=== PATIENT | male | born 1945 | race Caucasian/White ===

== ENCOUNTER 2016-08-06 01:48 | Emergency (ER) | payer MEDICARE, OTHER ==
[~2016-08-06] VITALS: Ht 167.6 cm; Wt 90.9 kg
[~2016-08-06 01:48] MED LIST: LISI-571 PO; LISI20TA PO
--- NOTE | 2016-08-06 01:51 | ED.REPORT ---
HPI-Abd Pain M 40 and Over Date of Service Aug 06, 2016 ED Provider: Ab Chang MD Pt is a 71 y.o. male with a hx of HTN and nephrolithiasis who presents to the ED accompanied by his c/o sudden abdominal pain onset 2129. Associated nausea, vomiting, and constipation. Pt states that he has not had a BM in 3 days. Nursing Notes Stated Complaint: ABDOMINAL PAIN, NAUSEA Nursing Notes Reviewed: Yes Allergies: Coded Allergies: Penicillins (Verified Allergy, Unknown, 08/06/16) Sulfa (Sulfonamide Antibiotics) (Verified Allergy, Unknown, 08/06/16) influenza virus vaccine, specific (Verified Adverse Reaction, Severe, Flu symptoms within 24hr of vaccine/each time xseveral yrs, 08/06/16) Scheduled Lisinopril (Lisinopril) 5 Mg Tablet 5 MG PO DAILY Lisinopril-Expunged Drug, Do Not Renew! (Lisinopril-Expunged Drug, Do Not Renew! ) 20 Mg Tablet 2.5 MG PO DAILY General Time Seen by MD: 01:50 Chief Complaint Abdominal pain Hx Obtained From: Patient Arrived By: Walk-in Sudden in Onset?: Yes Onset Occurred: 1 - 4 hours ago Symptom Duration: Since onset Location: : Diffuse Quality: Painful Severity: Current: Severe Recent Healthcare: No recent doctor visit, No recent hospitalization Past Medical History Past Medical History Hx of kidney stones Reports: Hypertension Past Surgical History Repair and re-attachment of fingers Reports: Tonsillectomy Family History Colon cancer Smoking History Never Smoker Social History Alcohol Use: Denies alcohol use Ambulatory Status Independent Review of Systems GI: Reports: Abdominal pain, Constipation, Nausea, Vomiting Complete sys rev & neg: except as marked. Physical Exam Initial Vital Signs Vital Signs (First) Date Time Temp Pulse Resp B/P Pulse Ox O2 Delivery O2 Flow Rate FiO2 08/06/16 01:56 36.6 65 20 156/96 99 Room Air 08/06/16 03:57 2 Initial VS: Reviewed, Vital signs abnormal Head / Eyes: Atraumatic, Normocephalic Extremities: Vascular intact, Neuro intact Skin: Warm, Dry, No cyanosis Neurologic: Alert, Oriented, Nonfocal Psychiatric: Mood/affect normal, Behavior normal, Normal thought content General/Constitutional: Awake, Alert, Well appearing, Well developed, Well hydrated Appearance / Presentation: Positive: In pain, Pale, Uncomfortable Respiratory / Chest: Atraumatic, Breath sounds NL, Breath sounds = bilat, No respiratory distress, No rales, No rhonchi, No wheezing, No retractions, No stridor Cardiovascular: Heart rate NL, Regular rhythm, Heart sounds NL, No gallop, No murmurs, No rubs, Peripheral circulation NL Bilateral femoral pulses present Abdomen: Atraumatic, Soft Tenderness/Guarding/Rebound: Positive: Tender diffuse Back: Atraumatic Interpretation & Diagnostics Lab Results Interpretation Result Diagram: 08/06/16 0154 08/06/16 0154 Test 08/06/16 01:54 08/06/16 03:30 White Blood Count 11.5th/mm3 (3.8-10.1) Red Blood Count 5.05mil/mm3 (4.40-5.80) Hemoglobin 15.9g/dL (13.8-17.2) Hematocrit 44.6% (41.0-50.0) Mean Corpuscular Volume 88.3fL (81-100) Mean Corpuscular Hemoglobin 31.5pg (27.0-35.0) Mean Corpuscular Hemoglobin Concent 35.7% (32.0-37.0) Red Cell Distribution Width 13.1% (12.3-15.4) Platelet Count 224bil/L (150-400) Neutrophils (%) (Auto) 79.0% (40-74) Lymphocytes (%) (Auto) 15.1% (14-46) Monocytes (%) (Auto) 5.1% (4-12) Eosinophils (%) (Auto) 0.3% (0-5) Basophils (%) (Auto) 0.3% (0-3) Prothrombin Time 10.0sec (8.1-12.5) Prothromb Time International Ratio 0.94ratio Sodium Level 138mEq/L (134-144) Potassium Level 3.1mEq/L (3.5-5.2) Chloride Level 97mEq/L (97-108) Carbon Dioxide Level 24mmol/L (18-29) Blood Urea Nitrogen 20mg/dL (8-27) Creatinine 0.93mg/dL (0.76-1.27) Estimat Glomerular Filtration Rate 85mL/min (>59) Glucose Level 185mg/dL (60-99) Lactic Acid Level 3.4mmol/L (0.4-2.0) Calcium Level 9.4mg/dL (8.5-10.1) Magnesium Level 2.1mg/dL (1.6-2.6) Total Bilirubin 0.5mg/dL (0.0-1.2) Aspartate Amino Transf (AST/SGOT) 22U/L (0-50) Alanine Aminotransferase (ALT/SGPT) 26U/L (0-44) Alkaline Phosphatase 67U/L (25-160) Total Protein 7.5g/dL (6.4-8.4) Albumin 4.3g/dL (3.4-5.0) Lipase 13U/L (13-60) Urine Color Straw (YELLOW) Urine Appearance Hazy (CLEAR,HAZY) Urine pH 8.0 (5.0-8.0) Urine Specific [place] 1.010 (1.003-1.035) Urine Protein Negativemg/dL (NEG,TRACE) Urine Glucose (UA) Negativemg/dL (NEGATIVE) Urine Ketones 15mg/dL (NEGATIVE) Urine Occult Blood Negative (NEGATIVE) Urine Nitrite Negative (NEGATIVE) Urine Bilirubin Negative (NEGATIVE) Urine Urobilinogen Normalmg/dL (NORMAL) Urine Leukocyte Esterase Negative (NEGATIVE) Urine RBC 0-2/hpf (0-2) Urine WBC 0-5/hpf (0-5) Urine Epithelial Cells Occasional/hpf (NONE-MOD) Urine Crystals Amorphous phosphates Urine Bacteria None/hpf (NONE-FEW) Urine Hyaline Casts None/lpf (NONE) Urine Granular Casts None seen (NONE SEEN) Urine Waxy Casts None seen (NONE SEEN) Urine Red Blood Cell Casts None seen (NONE SEEN) Urine White Blood Cell Casts None seen (NONE SEEN) Urine Mucus None seen (None Seen) Urine Trichomonas None seen (NONE SEEN) Urine Yeast None (NONE SEEN) Urine Culture Reflexed Not indicated Lab Results Interpretation: Mild white blood count elevation, hypokalemia, elevated lactic acid 3.4, hyperglycemia. ECG Interpretation Time: 01:53 Normal ECG Interpretation: Normal rate (73), Normal sinus rhythm Urinalysis Interpretation Positive ketones CT Chest Interpretation CONCLUSION: Normal CT angiogram of the chest. Radiologist: Good Jiang M.D. CT Abd / Pelvis Interpretation CONCLUSION: No acute vascular process. Dilation of the common bile duct and intrahepatic biliary tract with a questionable low density filling defect in the distal common bile duct. This may represent artifact, sludge, soft tissue lesion or low density stone. Correlate with clinical setting and labratory data to determine if further evaluation with ultrasound, MRCP or ERCP is indicated. Multiple renal cysts. Cannot completely exclude hydronephrosis in either kidney. If there are signs or symptoms of urinary tract pathology a followup AP supine radiograph of the abdomen might be considered, as urinary tract should be opacified from the IV contrast used fo rthis exam. CONCLUSION: No specific acute or active process. Mild prostatic enlargement. The ureters are nondilated and the bladder is normal. Small portion of the left kidney included on the topogram from this exam suggests findings on the previous CT of the abdomen represent a parapelvic cyst rather than hydronephrosis, at least on the left. If it would exchange architect, an AP supine radiograph of the abdomen may still prove useful as there may be residual contrast in the renal collecting systems. Radiologist: Good Jiang M.D. Re-Eval/Medical Decision Med Decision/Clinical Course 71-year-old male who presented with severe mid epigastric and back pain. He was initially evaluated with concern for the great vessel disease. He had good bilateral femoral pulses and no palpable mass in the abdomen. Workup was initiated to include a CT angiogram of the chest and abdomen. There is no evidence of aneurysm or dissection. He did, however, have dilated common bile duct and evidence of a stone. His care is being turned over change of shift to Dr. Kamaljit Mahoney while ultrasound is pending. Source of Hx: Old records Time of Eval: 04:10 Re-Evaluation/Progress Note: Pt rechecked. Pt is still in pain. Discussed need for additional CT, pt understands and agrees with plan. Counseled Regarding: Diagnosis, Lab results, Need for follow-up, When/why to return to ED Discharge & Departure Disposition: Home Vital Signs - All Vital Signs Date Time Temp Pulse Resp B/P Pulse Ox O2 Delivery O2 Flow Rate FiO2 08/06/16 05:55 75 16 106/54 98 Room Air 08/06/16 03:57 78 16 122/88 99 Nasal Cannula 2 08/06/16 02:00 36.3 65 18 156/96 94 Room Air 08/06/16 01:56 36.6 65 20 156/96 99 Room Air )( All Prior VS Reviewed: Yes Condition: Stable Referrals: [facility] (PCP) [place] Attestation Portions of this note were transcribed by Jeremy Jeronimo. I, Dr. Chang personally performed the history, physical exam and medical decision-making; I reviewed and confirmed the accuracy of the information in the transcribed note. Signed by: Keyon Clancy, 08/06/16 and 0606. copies to: [facility],Ab Navarrete MD Aug 06, 2016 01:51 JEREMY JERONIMO Aug 06, 2016 01:56
[2016-08-06 01:56] VITALS: BP 156/96; PULSE 65; RESP 20; O2SAT 99
[2016-08-06] MEDS ORDERED: 0.9% Sodium Chloride 1,000 ML IV ONE ×3 (01:57→13:55)
[2016-08-06 02:00] VITALS: BP 156/96; PULSE 65; RESP 18; O2SAT 94
[2016-08-06 02:11] LABS: BASOPHILS % (AUTO) 0.3 % (0-3); EOSINOPHILS % (AUTO) 0.3 % (0-5); MONOCYTES % (AUTO) 5.1 % (4-12); Mean Corpuscular Hemoglobin 31.5 pg (27.0-35.0); Mean Corpuscular Volume 88.3 fL (81-100); Platelet Count 224 bil/L (150-400)
[2016-08-06] MEDS: HYDROmorphone 0.5 mg/0.5 mL iSecure Syringe IVPUSH PRN ×6 (02:15→16:00)
[2016-08-06] MEDS: Ondansetron 2 mg/mL 2 mL Inj IVPUSH PRN ×5 (02:15→07:22)
[2016-08-06 02:27] LABS: INR 0.94 ratio
[2016-08-06 02:34] LABS: Magnesium 2.1 mg/dL (1.6-2.6)
[2016-08-06 03:57] VITALS: BP 122/88; PULSE 78; RESP 16; O2SAT 99
[2016-08-06 05:07] LABS: APPEARANCE,URINE HAZY (CLEAR,HAZY); COLOR,URINE STRAW (YELLOW); OCCULT BLOOD,URINE NEGATIVE (NEGATIVE); UROBILINOGEN,URINE NORMAL (NORMAL)
[2016-08-06 05:55] VITALS: BP 106/54; PULSE 75; RESP 16; O2SAT 98
[2016-08-06] MEDS ORDERED: metroNIDAZOLE Inj 500 MG in IV Premix 1 EACH IV ONE (07:35)
[2016-08-06] MEDS ORDERED: cefTRIAXone Inj 2 GM in IV Premix 1 EACH IV ONE (07:35)
[2016-08-06] MEDS ORDERED: Promethazine Inj 25 MG in Dextrose 5%-Pha MIX 50 ML IV ONE (07:55)
--- NOTE | 2016-08-06 09:01 | DRSVH ---
PROCEDURE: CT PELVIS WITHOUT CONTRAST ([id number]) INDICATIONS: bilat hydronephrosis TECHNIQUE: Noncontrast 3 mm axial sections acquired through the bony pelvis, with coronal and sagittal reformatt ing. COMPARISON: [facility], CT, CT ANGIO CHEST ABD, 08/06/2016, 3:17. FINDINGS: Image quality: Excellent. Bones: No fracture or dislocation. Lumbar spine degenerative disc disease and facet arthropathy are n oted. Normal bone mineralization is noted. Soft tissues: Contrast material is noted in the distal ureters and urinary bladder related to the CT angiogram of the chest and abdomen obtained 08/06/2016 at 0319 hrs. the visualized ureters follow norm al course abnormal caliber. Urinary bladder wall demonstrates normal thickness. No bladder masses jamia ntified. No definite renal stones are calcified bladder stone identified, however the presence of iod inated contrast material in the genitourinary collecting systems and decreases sensitivity of study f or nephrolithiasis. Visualized inferior tip of the left kidney is normal in appearance. Scattered ath erosclerotic calcifications are noted in the abdominal and pelvic vasculature. No lymphadenopathy bas ed on size criteria. Prostate gland is enlarged. Fat containing bilateral inguinal hernias are noted. IMPRESSION: 1. No acute disease process identified. 2. No evidence of hydronephrosis identified in the visualized portions of the genitourinary collectin g systems. 3. Prostate hypertrophy. 4. Bilateral inguinal hernias. Dictated by: Susy Hall MD, PhD on 08/06/2016 at 8:49 Approved by: Susy Hall MD, PhD on 08/06/2016 at 8:59
--- NOTE | 2016-08-06 09:07 | DRSVH ---
PROCEDURE: CT ANG CHEST/ABD W/WO CONTRAST ([id number]) INDICATIONS: severe abdominal/back pain TECHNIQUE: Precontrast 5 mm thick sections acquired from the lung apices to the iliac crests. After the adminis tration of intravenous contrast, 3 mm thick sections again acquired from the lung apices to the iliac crests. 3-dimensional maximum intensity projection (MIP) oblique sagittal and coronal reformats wer e then acquired, and/or 3-dimensional volume rendering reformats. For radiation dose reduction, the following was used: automated exposure control. COMPARISON: [facility], CT, ANG CHEST/ABD W/WO CONTRAST (PNL), 07/23/2013, 21:43. FINDINGS: Image quality: Excellent. AORTA: No evidence of thoracic aortic dissection, aneurysm, nor stenosis. There is mild focal aneury smal dilatation of the infrarenal abdominal aorta, measuring 27 mm, at the origin of a left-sided lum bar artery. This is unchanged. CHEST: Lungs and pleura: Mild right basilar atelectasis. Right hemidiaphragm elevation is present. No pleur al effusions or pneumothorax. Central and peripheral airways are patent and normal in caliber. Mediastinum: Heart size is normal. There is calcification of the coronary vasculature. No pericardi al effusion. No mediastinal or hilar adenopathy by size criteria. Central pulmonary arteries are no rmal in size. Esophagus is normal in caliber. No change in small hiatal hernia. Bones and chest wall: No axillary adenopathy by size criteria. Thyroid gland is within normal limit s. No suspicious bony lesions. No vertebral body compression fractures. ABDOMEN: Vasculature: Celiac trunk and mesenteric arteries are patent. Renal arteries are also patent. Solid organs: Liver and spleen are normal in size. Gallbladder is within normal limits. There is in creased biliary ductal dilatation. Common hepatic duct measures 0.3 mm, and common bile duct measures 16 mm. There is a possible intermediate density filling defect within the distal common bile duct. P ancreas enhances normally. No adrenal nodules. Bilateral parapelvic renal cysts are present, as bef ore. Both kidneys are otherwise normal in size and enhancement, without hydronephrosis. Peritoneum and bowel: No free fluid or air. Bowel loops are normal in caliber and wall thickness. Nodes and vessels: No retroperitoneal or mesenteric adenopathy by size criteria. Inferior vena cava is normal in morphology. Bones: No suspicious bony lesions. No vertebral body compression fractures. Miscellaneous: No ventral hernias. IMPRESSION: 1. No acute process. 2. No change in mild aneurysmal dilatation of the infrarenal abdominal aorta; annual sonographic surv eillance is recommended. 3. Biliary ductal dilatation with possible distal common bile duct calculus; this could be further as sessed with ERCP, if clinically indicated. 4. Concordant with preliminary interpretation. Dictated by: Stacy Abdi M.D. on 08/06/2016 at 8:50 Approved by: Stacy Abdi M.D. on 08/06/2016 at 9:06
[2016-08-06 09:10] VITALS: BP 129/85; PULSE 92; RESP 12; O2SAT 95
--- NOTE | 2016-08-06 10:55 | DRSVH ---
PROCEDURE: US ABDOMEN, LIMITED ([id number]) INDICATIONS: RUQ DILATED COMMON BILE DUCT,? CHOLEDOCHOLITHIASIS. TECHNIQUE: Real-time focused scanning was performed of the abdomen, with image documentation. COMPARISON: [facility], CT, CT ANGIO CHEST ABD, 08/06/2016, 3:17. [facility] , [place], ABDOMEN SONOGRAM LIMITED, 09/08/2014, 12:52. FINDINGS: Liver is diffusely increased in echogenicity. No focal hepatic abnormalities identified. Normal hepatic size. Limited evaluation of the gallbladder demonstrates no definite stones. The co mmon bile duct is dilated measuring up to 16 mm. Pancreas is not visualized. Limited evaluation of the kidney demonstrates bilateral renal cysts. IMPRESSION: 1. Increased hepatic echogenicity noted likely related to fatty infiltration of the liver but other s ources of hepatocellular disease cannot be excluded. Recommend clinical correlation. 2. Dilated extrahepatic bile duct measuring up to 16 mm. Stone or other bile duct pathology cannot b e excluded. If indicated ERCP or MRCP could be performed. 3. Renal cysts. Dictated by: Manjit Martínez A Interpreted: Susy Hall MD on 08/06/2016 at 10:00 Transcribed by: DARCY on 08/06/2016 at 13:51 Approved by: Susy Hall MD, PhD on 08/06/2016 at 17:25
[2016-08-06 14:35] VITALS: BP 140/87; PULSE 95; RESP 14; O2SAT 98
== END 2016-08-06 16:16 | disposition short-term general hospital (02) ==
LOC: SED 01:48
DX: K83.8 Other specified diseases of biliary tract (principal); K80.50 Calculus of bile duct without cholangitis or cholecystitis without obstruction; I10 Essential (primary) hypertension; Z87.442 Personal history of urinary calculi; Z88.0 Allergy status to penicillin; Z88.2 Allergy status to sulfonamides; Z88.6 Allergy status to analgesic agent
CPT/HCPCS: 36415; 71275; 72192; 74175; 76705; 80053; 81000; 83605; 83690; 83735; 85025; 85610; 87040; 93005; 96361; 96365; 96368; 96375; 96376; 99285; J0696; J1170; J2405; J2550; J3490; J7030; Q9967